=== PATIENT | female | born 1980 | race Two or more races ===

== ENCOUNTER → 2024-03-19 | Outpatient (CLI) | payer MEDICAID, SELFPAY ==
--- NOTE | 2024-03-19 15:00 | XR_ITS ---
Examination: CT cervical spine without contrast 2-D sagittal reconstructions 2-D coronal reconstructions 3-D reconstructions. Exam date and time:March 19, 2024 1512 hrs. Indications: Chronic back pain several months CTDI:vol (mGy) 13.5 DLP: (mGycm) 270 Technique: Multiple 2 mm axial sections of the cervical spine have been obtained. The coronal and sagittal reconstructions have been obtained. 3-D reconstructions have been obtained. Low dose protocols were performed. One or more of the following dose reduction techniques were used; automated exposure control, adjustment of the mA and/or KV according to patient size, use of iterative reconstruction technique. Findings: Axial sections demonstrate intact base of the skull. C1 exhibit satisfactory relationship to the odontoid. No acute cervical vertebral body fracture seen. Alignment posterior spinous processes satisfactory. Moderate degenerative disc disease C5-C6 Impression: No acute cervical fracture. Moderate degenerative disc disease C5-C6 with posterior osteophyte formation No focal significant cervical disc protrusion
== END | disposition home or self-care (01) ==
PROVIDERS: PCP Internal Medicine; Referring Provider Internal Medicine; Visit Provider Internal Medicine
DX: M50.322 Other cervical disc degeneration at C5-C6 level (principal); M25.78 Osteophyte, vertebrae
CPT/HCPCS: 72125